=== PATIENT | female | born 1935 | race Caucasian/White ===

== ENCOUNTER → 2018-08-13 | Outpatient (CLI) | payer MEDICARE, OTHER ==
--- NOTE | 2018-08-13 13:23 | Diagnostic Imaging Report ---
EXAM: Renal Ultrasound INDICATION: ^[id number] ^[id number] ^CYST OF KIDNEY COMPARISON: Renal ultrasound 04/28/2016, 01/23/2015 and 03/27/2014 TECHNIQUE: Transverse and longitudinal images of the kidneys and bladder were obtained. FINDINGS: Right Kidney: Size: 10.2 cm, right renal cortex 1.4 cm. Appearance: Normal echogenicity. Collecting system: No hydronephrosis Stones: None Cyst/Mass: None Left Kidney: Size: 10.1 cm, left renal cortex 1.5 cm. Appearance: Normal echogenicity. Collecting system: No hydronephrosis Stones: None Cyst/Mass: 1.2 x 1.0 x 1.0 cm cystic, anechoic lesion in the superior pole (previously measured 0.9 x 0.7 x 0.9 cm on 04/28/2016, 1.2 x 0.7 x 1.1 cm on exam 01/23/2015 and 1.3 x 1.2 x 1.2 cm on exam 03/27/2014 Bladder: No focal lesions. No wall thickening. Bilateral ureteral jets are identified. Prevoid bladder volume 200.1 mL. Postvoid bladder volume None IMPRESSION: 1. Normal bilateral renal size and echogenicity . No hydronephrosis or obstruction. 2. Stable 1.2 cm simple appearing cyst in the left superior pole 3. No significant bladder post void residual. Signed by: Dr. Jason Garcia M.D. on 08/13/2018 1:20 PM
== END ==
LOC: US 10:38
PROVIDERS: ATTEND Urology
DX: N28.1 Cyst of kidney, acquired (principal)
CPT/HCPCS: 76770